=== PATIENT | female | born 1990 | race Caucasian/White ===

== ENCOUNTER → 2017-11-27 | Outpatient (CLI) | payer OTHER ==
[~2017-11-27] MED LIST: ACET325 PO; AMOX500 PO; ARIP10; Camila0.35 MG; Cipro500 MG PO; DIVA500EC PO; IBUP800 PO; Norco 10-325 T1 EACH PO; PRED10 PO; Prednisone20 MG PO; Pyridium100 MG; Pyridium100 MG PO; TOBDEXOPSU LEFTEYE; Verotin-Gr Cap1 EACH PO; Zithromax250 MG PO; Zofran4 MG PO
[2017-12-19 14:10] LABS: CHLAMYDIA TRACHOMATIS, NAA Negative (Negative); NEISSERIA GONORRHOEAE, NAA Negative (Negative)
== END | disposition home or self-care (01) ==
LOC: LAB SHORT 15:50 → LAB 15:50
PROVIDERS: Obstetrics & Gynecology
DX: Z11.3 Encounter for screening for infections with a predominantly sexual mode of transmission (principal)
CPT/HCPCS: 87491; 87591; G0123

== ENCOUNTER → 2018-04-30 | Outpatient (CLI) | payer OTHER | END | disposition home or self-care (01) | LOC: LAB SHORT 16:12 → LAB 16:12 | DX: Z34.80 Encounter for supervision of other normal pregnancy, unspecified trimester (principal) | CPT/HCPCS: 87081; 87653 ==

== ENCOUNTER 2018-10-15 20:33 | Emergency (ER) | payer OTHER ==
[~2018-10-15] VITALS: Ht 172.7 cm; Wt 61.2 kg
[~2018-10-15 20:33] MED LIST changes: +DOCU100 PO
[2018-10-15 21:17] LABS: Source, Urine Clean Catch
[2018-10-15 21:26] LABS: Bilirubin, Urine Neg (Neg); Blood, Urine 5+ (Neg); Glucose Qualitative, Urine Neg (Neg); Ketones, Urine 2+ (Neg); Leukocyte Esterase, Urine 2+ (Neg); Nitrite, Urine Pos (Neg); Protein, Urine 2+ (Neg); Urobilinogen, Urine NORM (Normal)
[2018-10-15 21:37] LABS: Appearance, Urine Hazy (Clear); Color, Urine Yellow (P-Yellow)
[2018-10-15 21:38] LABS: Bacteria Many /hpf; Mucus Light (0-Heavy); Red Blood Cells, Urine 0-2 /hpf (0-2); Squamous Epithelial Cells Few /hpf (Few); White Blood Cells, Urine 50-100 /hpf (0-5)
[2018-10-15] MEDS ORDERED: Macrobid 100 M100 MG PO (23:00)
== END 2018-10-15 23:07 | disposition home or self-care (01) ==
LOC: ER 20:33
PROVIDERS: Emergency Medicine
DX: N30.91 Cystitis, unspecified with hematuria (principal); F17.210 Nicotine dependence, cigarettes, uncomplicated
CPT/HCPCS: 81001; 81025; 87077; 87086; 87186; 96372; 99283-25; J0696

== ENCOUNTER → 2019-01-11 | Outpatient (CLI) | payer OTHER ==
[~2019-01-11] MED LIST changes: +Macrobid 100 M100 MG PO
[2019-01-11 14:09] LABS: Source, Urine Clean Catch
[2019-01-11 15:14] LABS: Bilirubin, Urine Neg (Neg); Blood, Urine Neg (Neg); Glucose Qualitative, Urine Neg (Neg); Ketones, Urine 1+ (Neg); Leukocyte Esterase, Urine Neg (Neg); Nitrite, Urine Neg (Neg); Protein, Urine Neg (Neg); Specific Gravity, Urine 1.025 (1.003-1.022); Urobilinogen, Urine NORM (Normal)
[2019-01-11 15:29] LABS: Appearance, Urine Clear (Clear); Color, Urine Yellow (P-Yellow)
[2019-01-11 15:31] LABS: U Amphetamine Screen Not Detected; U Barbituate Screen Not Detected; U Benzodiazapine Screen Not Detected; U Buprenorphine Screen Not Detected; U Cannabinoids Screen Not Detected; U Cocaine Screen Not Detected; U Methadone Screen Not Detected; U Methamphetamine Screen Not Detected; U Opiates Screen Not Detected; U Oxycodone Screen Not Detected; U Phencyclidine Screen Not Detected; U Propoxyphene Screen Not Detected
== END | disposition home or self-care (01) ==
LOC: EDSTATUS 08:58 → LAB 11:58 → LAB SHORT 11:58
PROVIDERS: Obstetrics & Gynecology
DX: Z34.80 Encounter for supervision of other normal pregnancy, unspecified trimester (principal)
CPT/HCPCS: 81003; 87086

== ENCOUNTER → 2019-03-08 | Outpatient (CLI) | payer OTHER ==
[2019-03-11 01:06] LABS: CHLAMYDIA TRACHOMATIS, NAA Negative (Negative); NEISSERIA GONORRHOEAE, NAA Negative (Negative)
== END | disposition home or self-care (01) ==
LOC: LAB SHORT 17:59 → LAB 17:59
PROVIDERS: Obstetrics & Gynecology
DX: Z11.3 Encounter for screening for infections with a predominantly sexual mode of transmission (principal)
CPT/HCPCS: 87491; 87591

== ENCOUNTER → 2019-07-29 | Outpatient (CLI) | payer OTHER ==
[~2019-07-29] MED LIST changes: +DOCU100
== END | disposition home or self-care (01) ==
LOC: LAB 18:26 → LAB SHORT 18:26
DX: Z34.93 Encounter for supervision of normal pregnancy, unspecified, third trimester (principal)
CPT/HCPCS: 87081; 87653

== ENCOUNTER 2019-08-24 09:30 | Inpatient (IN) | payer OTHER ==
[~2019-08-24] VITALS: Ht 172.7 cm; Wt 77.1 kg
[~2019-08-24 09:30] MED LIST changes: -DOCU100
[2019-08-24] MEDS ORDERED: DOCU100 (10:16)
[2019-08-24 10:18] LABS: BASOPHILS ABSOLUTE AUTO 0.05 K/mm3 (0.00-0.23); BASOPHILS PERCENT AUTO 0 % (0-2); EOSINOPHILS ABSOLUTE AUTO 0.15 K/mm3 (0.00-0.68); EOSINOPHILS PERCENT AUTO 1 % (0-6); Hematocrit 32.8 % (33.0-51.0); IMMATURE GRAN PERCENT AUTO 1 % (0-1); LYMPHOCYTES ABSOLUTE AUTO 3.07 K/mm3 (0.84-5.20); LYMPHOCYTES PERCENT AUTO 22 % (21-46); MONOCYTES ABSOLUTE AUTO 1.05 K/mm3 (0.16-1.47); MONOCYTES PERCENT AUTO 8 % (4-13); Mean Corpuscular HGB 25.1 pg (26.0-34.0); Mean Corpuscular HGB Conc 30.5 g/dL (31.5-36.5); Mean Corpuscular Volume 82 fL (80-100); Mean Platelet Volume 10.5 fL (9.1-12.4); NEUTROPHILS ABSOLUTE AUTO 9.28 K/mm3 (1.96-9.15); NEUTROPHILS PERCENT AUTO 67 % (41-73); Platelet Count 271 K/mm3 (150-400); RDW Coefficient Variation 16.3 % (11.7-14.2); RDW Standard Deviation 49.1 fL (35.1-46.3); Red Blood Cell Count 3.99 M/mm3 (3.80-5.20)
[2019-08-25 05:52] LABS: Hematocrit 27.8 % (33.0-51.0); Hemoglobin 8.5 g/dL (11.5-16.0); Mean Corpuscular HGB 25.2 pg (26.0-34.0); Mean Corpuscular HGB Conc 30.6 g/dL (31.5-36.5); Mean Corpuscular Volume 83 fL (80-100); Mean Platelet Volume 10.4 fL (9.1-12.4); Platelet Count 240 K/mm3 (150-400); RDW Coefficient Variation 16.2 % (11.7-14.2); RDW Standard Deviation 48.8 fL (35.1-46.3); Red Blood Cell Count 3.37 M/mm3 (3.80-5.20); White Blood Cell Count 14.78 K/mm3 (4.00-11.30)
[2019-08-25] MEDS ORDERED: IBUP800 PO (08:16)
--- NOTE | 2019-08-25 09:15 | NUR ---
Pt up in shower.
--- NOTE | 2019-08-25 18:00 | NUR ---
Printed d/c instructions and teaching reviewed w/pt. Questions answered to her satisfaction.
--- NOTE | 2019-08-25 18:35 | NUR ---
No acute changes t/o shift. Pt d/c'd to boarder status.
== END 2019-08-25 18:35 | disposition home or self-care (01) | DRG 807 ==
LOC: OBS 09:30 → BC 09:31 → OBS 09:42 → BC 09:43
PROVIDERS: ADMIT Obstetrics & Gynecology
PROC: 10E0XZZ Delivery of Products of Conception, External Approach (ICD-10-PCS; principal; 2019-08-24)
PROC: 0KQM0ZZ Repair Perineum Muscle, Open Approach (ICD-10-PCS; 2019-08-24)
PROC: 10907ZC Drainage of Amniotic Fluid, Therapeutic from Products of Conception, Via Natural or Artificial Opening (ICD-10-PCS; 2019-08-24)
PROC: 3E0R3BZ Introduction of Anesthetic Agent into Spinal Canal, Percutaneous Approach (ICD-10-PCS; 2019-08-24)
DX: O99.334 Smoking (tobacco) complicating childbirth (principal); Z37.0 Single live birth; O70.1 Second degree perineal laceration during delivery; Z3A.40 40 weeks gestation of pregnancy; F17.210 Nicotine dependence, cigarettes, uncomplicated; O99.344 Other mental disorders complicating childbirth; F31.9 Bipolar disorder, unspecified
CPT/HCPCS: 36415; 51702; 85025; 85027; 86850; 86900; 86901; A9270; J1885; J2001; J2590; J3010; J7120

== ENCOUNTER → 2019-12-14 | Outpatient (CLI) | payer OTHER ==
[~2019-12-14] MED LIST changes: +DOCU100
[2019-12-17 02:07] LABS: CHLAMYDIA TRACHOMATIS, NAA Negative (Negative); NEISSERIA GONORRHOEAE, NAA Negative (Negative)
== END ==
LOC: LAB SHORT 19:06 → LAB EV 19:06
PROVIDERS: Emergency Medicine
DX: L29.3 Anogenital pruritus, unspecified (principal)
CPT/HCPCS: 87070; 87205; 87491; 87591

== ENCOUNTER → 2021-03-27 | Outpatient (CLI) | payer OTHER ==
[2021-03-27 18:28] LABS: BASOPHILS ABSOLUTE AUTO 0.06 K/mm3 (0.00-0.23); BASOPHILS PERCENT AUTO 1 % (0-2); EOSINOPHILS ABSOLUTE AUTO 0.12 K/mm3 (0.00-0.68); EOSINOPHILS PERCENT AUTO 2 % (0-6); Hematocrit 35.8 % (33.0-51.0); Hemoglobin 11.9 g/dL (11.5-16.0); IMMATURE GRAN ABSOLUTE AUTO 0.02 K/mm3 (0.00-0.10); IMMATURE GRAN PERCENT AUTO 0 % (0-1); LYMPHOCYTES ABSOLUTE AUTO 2.11 K/mm3 (0.84-5.20); LYMPHOCYTES PERCENT AUTO 31 % (21-46); MONOCYTES ABSOLUTE AUTO 0.55 K/mm3 (0.16-1.47); MONOCYTES PERCENT AUTO 8 % (4-13); Mean Corpuscular HGB 30.7 pg (26.0-34.0); Mean Corpuscular HGB Conc 33.2 g/dL (31.5-36.5); Mean Corpuscular Volume 92 fL (80-100); Mean Platelet Volume 10.3 fL (9.1-12.4); NEUTROPHILS ABSOLUTE AUTO 3.97 K/mm3 (1.96-9.15); NEUTROPHILS PERCENT AUTO 58 % (41-73); Platelet Count 221 K/mm3 (150-400); RDW Standard Deviation 43.8 fL (35.1-46.3); Red Blood Cell Count 3.88 M/mm3 (3.80-5.20); White Blood Cell Count 6.83 K/mm3 (4.00-11.30)
[2021-03-27 18:44] LABS: Alanine Aminotransfer (ALT/SGP 13 U/L (12-78); Albumin, Blood 3.8 g/dL (3.4-5.0); Albumin/Globulin Ratio 1.3 (0.8-1.8); Alk Phos 43 U/L (40-126); Anion Gap 5 mmol/L (6-16); Aspartate Aminotrans (AST/SGOT 10 U/L (12-37); Bilirubin, Total 0.4 mg/dL (0.1-1.0); Blood Urea Nitrogen 16 mg/dL (8-24); Bun/Creatinine Ratio 28.6 (12.0-20.0); CO2, Blood 29 mmol/L (21-32); Calcium, Blood 8.1 mg/dL (8.5-10.1); Chloride, Blood 105 mmol/L (98-108); Creatinine, Blood 0.56 mg/dL (0.40-1.00); Globulin, Blood 2.9 g/dL (2.2-4.0); Glomerular Filtration Rate >60 (60-); Glucose, Blood 76 mg/dL (70-99); Sodium, Blood 139 mmol/L (136-145); Total Protein, Blood 6.7 g/dL (6.4-8.2)
== END | disposition home or self-care (01) ==
LOC: LAB 18:23 → LAB SHORT 18:23
PROVIDERS: Family Medicine
DX: N92.6 Irregular menstruation, unspecified (principal); R30.9 Painful micturition, unspecified
CPT/HCPCS: 80053; 84443; 85025; 87086

== ENCOUNTER → 2022-03-11 | Outpatient (CLI) | payer OTHER | END | disposition home or self-care (01) | LOC: LAB 18:40 → LAB SHORT 18:40 | DX: N39.0 Urinary tract infection, site not specified (principal) | CPT/HCPCS: 87077; 87086; 87147; 87186 ==

== ENCOUNTER → 2022-04-09 | Outpatient (CLI) | payer OTHER ==
[2022-04-10 10:21] LABS: Candida species (DNA Probe) Negative (NEGATIVE); G. vaginalis (DNA Probe) Negative (NEGATIVE); T. vaginalis (DNA Probe) Negative (NEGATIVE)
[2022-04-11 04:11] LABS: CHLAMYDIA TRACHOMATIS, NAA Negative (Negative)
== END | disposition home or self-care (01) ==
LOC: LAB 17:59 → LAB SHORT 17:59
PROVIDERS: Nurse Practitioner
DX: N89.8 Other specified noninflammatory disorders of vagina (principal); R30.0 Dysuria
CPT/HCPCS: 87077; 87086; 87186; 87480; 87491; 87510; 87591; 87660

== ENCOUNTER → 2022-08-22 | Outpatient (CLI) | payer OTHER | END | disposition home or self-care (01) | LOC: LAB SHORT 18:50 → LAB 18:50 | DX: R21 Rash and other nonspecific skin eruption (principal) | CPT/HCPCS: 87070; 87205 ==

== ENCOUNTER → 2022-09-03 | Outpatient (CLI) | payer OTHER ==
[2022-09-04 11:34] LABS: Candida species (DNA Probe) Negative (NEGATIVE); G. vaginalis (DNA Probe) Negative (NEGATIVE); T. vaginalis (DNA Probe) Negative (NEGATIVE)
[2022-09-05 15:08] LABS: HPV 16 Negative (Negative); HPV 18 Negative (Negative); HPV OTHER HR TYPES Negative (Negative)
== END | disposition home or self-care (01) ==
LOC: LAB SHORT 17:21 → LAB 17:21
PROVIDERS: Family Medicine
DX: Z01.419 Encounter for gynecological examination (general) (routine) without abnormal findings (principal); R10.2 Pelvic and perineal pain
CPT/HCPCS: 87480; 87510; 87660

== ENCOUNTER → 2023-07-24 | Outpatient (CLI) | payer OTHER ==
[2023-07-25 15:18] LABS: Candida species (DNA Probe) Negative (NEGATIVE); G. vaginalis (DNA Probe) Negative (NEGATIVE); T. vaginalis (DNA Probe) Negative (NEGATIVE)
[2023-07-27 08:11] LABS: HIV 1,2 COMBO ANTIGEN/ANTIBODY Negative (Negative)
[2023-07-27 10:05] LABS: HEPATITIS A ANTIBODY, IGM Negative (Negative); HEPATITIS B CORE ANTIBODY, IGM Negative (Negative); HEPATITIS B SURFACE ANTIGEN Negative (Negative); HEPATITIS C AB CIA INTERP High Pos (Negative); HEPATITIS C ANTIBODY CIA INDEX >11.00 IV
[2023-07-27 16:19] LABS: C. TRACHOMATIS BY TMA Negative (Negative); N. GONORRHOEAE BY TMA Negative (Negative); SPECIMEN SOURCE Urine; T. VAGINALIS BY TMA Negative (Negative)
[2023-07-28 11:40] LABS: HCV QNT BY NAAT (IU/ML) Not Detected; HCV QNT BY NAAT (LOG IU/ML) Not Detected; HCV QNT BY NAAT INTERP Not Detected (Not Detected)
[2023-07-29 13:29] LABS: APTIMA MEDIA TYPE Urine
== END | disposition home or self-care (01) ==
LOC: LAB 19:54 → LAB SHORT 19:54
PROVIDERS: Nurse Practitioner Family
DX: N89.8 Other specified noninflammatory disorders of vagina (principal); Z72.51 High risk heterosexual behavior
CPT/HCPCS: 80074; 86592; 87389; 87480; 87491; 87510; 87522; 87591; 87660; 87661

== ENCOUNTER 2023-08-30 21:30 | Emergency (ER) | payer OTHER ==
[~2023-08-30] VITALS: Ht 172.7 cm; Wt 61.7 kg
[2023-08-30 21:41] VITALS: BP 120/76
== END 2023-08-30 22:15 | disposition home or self-care (01) ==
LOC: ER 21:30
DX: S80.11XA Contusion of right lower leg, initial encounter (principal); R50.9 Fever, unspecified; F17.210 Nicotine dependence, cigarettes, uncomplicated; F31.9 Bipolar disorder, unspecified; F43.10 Post-traumatic stress disorder, unspecified; Z79.899 Other long term (current) drug therapy; X58.XXXA Exposure to other specified factors, initial encounter
CPT/HCPCS: 99283

== ENCOUNTER → 2023-09-08 | Outpatient (CLI) | payer OTHER ==
[2023-09-09 12:59] LABS: Candida species (DNA Probe) Negative (NEGATIVE); G. vaginalis (DNA Probe) Positive (NEGATIVE); T. vaginalis (DNA Probe) Negative (NEGATIVE)
[2023-09-11 09:22] LABS: APTIMA MEDIA TYPE Unisex Swab; C. TRACHOMATIS BY TMA Negative (Negative); N. GONORRHOEAE BY TMA Negative (Negative); SPECIMEN SOURCE Vaginal
== END ==
LOC: LAB SHORT 13:52 → LAB 13:52
PROVIDERS: Obstetrics & Gynecology
DX: N76.0 Acute vaginitis (principal); Z11.3 Encounter for screening for infections with a predominantly sexual mode of transmission
CPT/HCPCS: 87480; 87491; 87510; 87591; 87660

== ENCOUNTER → 2023-11-25 | Outpatient (CLI) | payer OTHER ==
[2023-11-26 00:45] LABS: Bacterial Vaginosis PCR Negative (NEGATIVE); Candida Group, PCR NOT DETECTED (NOT DETECT)
[2023-11-26 10:23] LABS: Candida glabrata-krusei, PCR DETECTED (NOT DETECT)
== END | disposition home or self-care (01) ==
LOC: LAB 17:09 → LAB SHORT 17:09
PROVIDERS: Registered Nurse
DX: B37.49 Other urogenital candidiasis (principal); Z20.2 Contact with and (suspected) exposure to infections with a predominantly sexual mode of transmission
CPT/HCPCS: 87481; 87661; 87801

== ENCOUNTER 2024-10-02 22:05 | Emergency (ER) | payer OTHER ==
[~2024-10-02] VITALS: Ht 172.7 cm; Wt 68.0 kg
[2024-10-02 22:09] VITALS: BP 119/80
== END 2024-10-02 23:10 | disposition home or self-care (01) ==
LOC: ER 22:05
DX: S00.03XA Contusion of scalp, initial encounter (principal); F07.81 Postconcussional syndrome; F17.210 Nicotine dependence, cigarettes, uncomplicated; F43.10 Post-traumatic stress disorder, unspecified; W22.8XXA Striking against or struck by other objects, initial encounter; Z79.899 Other long term (current) drug therapy
CPT/HCPCS: 70450; 99284-25

== ENCOUNTER → 2024-10-05 | Outpatient (CLI) | payer OTHER ==
[2024-10-06 12:17] LABS: Bacterial Vaginosis PCR Negative (NEGATIVE); Candida Group, PCR NOT DETECTED (NOT DETECT); Candida glabrata-krusei, PCR NOT DETECTED (NOT DETECT)
[2024-10-06 12:53] LABS: Chlamydia Trachomatis Vaginal NOT DETECTED (NOT DETECT); Neisseria Gonorrhoea Vaginal NOT DETECTED (NOT DETECT)
== END ==
LOC: LAB 18:42 → LAB SHORT 18:42
DX: N89.8 Other specified noninflammatory disorders of vagina (principal); L29.9 Pruritus, unspecified
CPT/HCPCS: 81515; 87491; 87591

== ENCOUNTER → 2024-10-20 | Outpatient (CLI) | payer OTHER ==
[2024-10-27 20:29] LABS: OVA AND PARASITE,FECAL INTERP Negative (Negative)
== END | disposition home or self-care (01) ==
LOC: LAB SHORT 12:30 → LAB 12:30
DX: Z11.6 Encounter for screening for other protozoal diseases and helminthiases (principal)
CPT/HCPCS: 87177; 87209

== ENCOUNTER → 2024-12-09 | Outpatient (CLI) | payer OTHER ==
[2024-12-10 14:02] LABS: Bacterial Vaginosis PCR Negative (NEGATIVE); Candida Group, PCR NOT DETECTED (NOT DETECT); Candida glabrata-krusei, PCR NOT DETECTED (NOT DETECT)
== END ==
LOC: LAB 17:00 → LAB SHORT 17:00
DX: Z12.4 Encounter for screening for malignant neoplasm of cervix (principal)
CPT/HCPCS: 81515